=== PATIENT | female | born 1935 | race Caucasian/White ===

== ENCOUNTER 2016-03-30 19:24 | Inpatient (IN) | payer OTHER ==
[~2016-03-30] VITALS: Ht 2245.4 cm; Wt 92.8 kg
[~2016-03-30 19:24] MED LIST: ASPIRIN325 MG PO; ATORVASTATIN CA40 MG PO; CARDIZEM CD240 MG PO; COLACE100 MG PO; LEXAPRO20 MG PO; LISINOPRIL40 MG PO; PROTONIX40 MG PO; SPIRIVA RESPIMAT4 GM IH; TYLENOL EXTRA500 MG PO; VENTOLIN HFA18 GM IH; XANAX0.5 MG PO
[2016-03-30 21:04] LABS: HEMATOCRIT 34.6 % (36.0-46.0); MCH 24.9 PG (29.0-34.0); MCHC 30.9 G/DL (30.0-36.0); MCV 80.5 FL (83-99); MEAN PLAT.VOLUME 9.2 uM^3 (9.5-12.4); PLATELET COUNT 222 K/uL (156-360); RBC DIS.WIDTH-CV 14.5 % (11.8-14.6); RBC DIS.WIDTH-SD 41.9 % (39-53); WHITE BLOOD COUNT 14.2 K/uL (4.1-10.2)
[2016-03-30 21:13] LABS: CHLORIDE 103 mEq/L (99-109); POTASSIUM 3.4 mEq/L (3.7-5.4); SODIUM 139 mEq/L (136-147)
[2016-03-30 21:15] LABS: GLUCOSE 107 mg/dL (70-99)
[2016-03-30 21:17] LABS: ANION GAP 10 MEQ/L (2-14)
[2016-03-30 21:19] LABS: GFR ESTIMATE (CALCULATED) > 59 mL/min/
[2016-03-30 21:20] LABS: UREA NITROGEN (BUN) 17 mg/dL (9-23)
[2016-03-31 00:36] LABS: EOSINOPHIL (%) 0.7 % (0-5); EOSINOPHIL COUNT 0.1 K/uL (0-0.3); IMMATURE GRANULOCYTE (%) 0.3 % (0.0-0.7); LYMPHOCYTE COUNT 1.6 K/uL (1.0-2.8); MONOCYTE (%) 11.6 % (3-12); MONOCYTE COUNT 1.7 K/uL (0-0.8); NEUTROPHIL (%) 76.2 % (45-76); NEUTROPHIL COUNT 10.9 K/uL (1.8-6.4)
[2016-03-31 00:41] LABS: ADD MIUA? YES; BILIRUBIN NEGATIVE; BLOOD SMALL; COLOR YELLOW ((YELLOW)); GLUCOSE (STRIP) NEGATIVE; KETONES 5; LEUKOCYTES LARGE; NITRITE NEGATIVE; PROTEIN (STRIP) 30; SPECIFIC GRAVITY 1.019 (1.000-1.030)
[2016-03-31 00:59] LABS: BACTERIA RARE /HPF; EPITHELIAL CELLS 2+ /HPF; MUCUS 1+ /LPF; UCUL ADDED? YES; WHITE BLOOD CELLS TNTC /HPF (0-5)
[2016-03-31] MEDS ORDERED: ADVAIR 250/501 DISK IH (02:33)
[2016-03-31 03:07] LABS: TOTAL BILIRUBIN 0.5 mg/dL (0.0-1.0)
[2016-03-31 03:08] LABS: ALKALINE PHOSPHATASE 107 IU/L (3-129)
[2016-03-31 03:11] LABS: DIRECT BILIRUBIN 0.3 mg/dL (0.0-0.3)
[2016-03-31 07:25] LABS: INTERNAL CONTROL VALID? YES
[2016-03-31 12:23] VITALS: BP 159/77
[2016-03-31 13:41] LABS: ANION GAP 9 MEQ/L (2-14); CHLORIDE 104 MEQ/L (99-109); SAMPLE HEMOLYSIS CHECK 0; SAMPLE ICTERIC CHECK 0; SAMPLE LIPEMIA CHECK 0; SODIUM 139 MEQ/L (136-147)
[2016-03-31 13:42] LABS: POTASSIUM 4.1 MEQ/L (3.7-5.4)
[2016-03-31 13:48] LABS: GFR ESTIMATE (CALCULATED) > 59 mL/min/; GLUCOSE 100 mg/dL (70-99); UREA NITROGEN (BUN) 17 mg/dL (9-23)
[2016-03-31 13:55] LABS: Estimated Average Glucose 123 mg/dL (70-123); HEMOGLOBIN A1c (GLYCOHEMOGLOB) 5.9 % HGB (Below 5.7)
[2016-03-31 14:18] LABS: IRON 12 MCG/DL (35-150)
[2016-03-31 14:53] LABS: FERRITIN 68 NG/ML (10-291)
[2016-03-31 16:00] VITALS: BP 151/65
[2016-03-31 22:35] VITALS: BP 158/73
[2016-04-01 07:15] LABS: EOSINOPHIL (%) 1.8 % (0-5); EOSINOPHIL COUNT 0.2 K/uL (0-0.3); HEMATOCRIT 28.9 % (36.0-46.0); IMMATURE GRANULOCYTE (%) 0.3 % (0.0-0.7); LYMPHOCYTE COUNT 1.2 K/uL (1.0-2.8); MCH 25.1 PG (29.0-34.0); MCHC 31.1 G/DL (30.0-36.0); MCV 80.5 FL (83-99); MEAN PLAT.VOLUME 9.3 uM^3 (9.5-12.4); MONOCYTE (%) 13.1 % (3-12); MONOCYTE COUNT 1.5 K/uL (0-0.8); NEUTROPHIL (%) 73.8 % (45-76); NEUTROPHIL COUNT 8.5 K/uL (1.8-6.4); PLATELET COUNT 205 K/uL (156-360); RBC DIS.WIDTH-CV 14.6 % (11.8-14.6); RBC DIS.WIDTH-SD 42.8 % (39-53); RED BLOOD COUNT 3.59 M/uL (3.80-5.20); WHITE BLOOD COUNT 11.5 K/uL (4.1-10.2)
[2016-04-01 07:21] VITALS: BP 122/68
[2016-04-01 10:59] VITALS: BP 113/68
[2016-04-01 17:39] VITALS: BP 141/76
[2016-04-01 22:15] VITALS: BP 148/83
[2016-04-02 08:27] VITALS: BP 136/77
[2016-04-02 08:57] LABS: HEMATOCRIT 30.7 % (36.0-46.0); MCH 24.6 PG (29.0-34.0); MCHC 30.3 G/DL (30.0-36.0); MCV 81.2 FL (83-99); MEAN PLAT.VOLUME 9.1 uM^3 (9.5-12.4); PLATELET COUNT 210 K/uL (156-360); RBC DIS.WIDTH-CV 14.6 % (11.8-14.6); RBC DIS.WIDTH-SD 43.2 % (39-53); RED BLOOD COUNT 3.78 M/uL (3.80-5.20); WHITE BLOOD COUNT 10.2 K/uL (4.1-10.2)
[2016-04-02 09:20] LABS: ANION GAP 6 MEQ/L (2-14); CHLORIDE 102 MEQ/L (99-109); GFR ESTIMATE (CALCULATED) > 59 mL/min/; GLUCOSE 149 mg/dL (70-99); POTASSIUM 3.8 MEQ/L (3.7-5.4); SAMPLE HEMOLYSIS CHECK 0; SAMPLE ICTERIC CHECK 0; SAMPLE LIPEMIA CHECK 0; SODIUM 138 MEQ/L (136-147); UREA NITROGEN (BUN) 12 mg/dL (9-23)
[2016-04-02 16:00] VITALS: BP 131/66
[2016-04-02 22:38] VITALS: BP 132/78
[2016-04-03 06:22] LABS: HEMATOCRIT 31.8 % (36.0-46.0); MCH 23.6 PG (29.0-34.0); MCHC 29.2 G/DL (30.0-36.0); MCV 80.7 FL (83-99); MEAN PLAT.VOLUME 9.2 uM^3 (9.5-12.4); PLATELET COUNT 231 K/uL (156-360); RBC DIS.WIDTH-CV 14.4 % (11.8-14.6); RBC DIS.WIDTH-SD 42.6 % (39-53); RED BLOOD COUNT 3.94 M/uL (3.80-5.20)
[2016-04-03 06:44] LABS: ALKALINE PHOSPHATASE 81 IU/L (3-129); ANION GAP 8 MEQ/L (2-14); CHLORIDE 101 MEQ/L (99-109); GFR ESTIMATE (CALCULATED) > 59 mL/min/; GLUCOSE 165 mg/dL (70-99); POTASSIUM 4.2 MEQ/L (3.7-5.4); SAMPLE HEMOLYSIS CHECK 0; SAMPLE ICTERIC CHECK 0; SAMPLE LIPEMIA CHECK 0; SODIUM 138 MEQ/L (136-147); TOTAL BILIRUBIN 0.3 MG/DL (0.0-1.0); UREA NITROGEN (BUN) 17 mg/dL (9-23)
[2016-04-03 08:30] VITALS: BP 137/71
[2016-04-03 16:08] VITALS: BP 115/56
[2016-04-03 22:53] VITALS: BP 128/79
[2016-04-04 07:33] LABS: HEMATOCRIT 30.9 % (36.0-46.0); MCH 24.2 PG (29.0-34.0); MCHC 30.1 G/DL (30.0-36.0); MCV 80.5 FL (83-99); MEAN PLAT.VOLUME 9.1 uM^3 (9.5-12.4); PLATELET COUNT 261 K/uL (156-360); RBC DIS.WIDTH-CV 14.6 % (11.8-14.6); RBC DIS.WIDTH-SD 42.3 % (39-53); RED BLOOD COUNT 3.84 M/uL (3.80-5.20)
[2016-04-04 07:37] VITALS: BP 155/76
[2016-04-04 07:51] LABS: ALKALINE PHOSPHATASE 77 IU/L (3-129); ANION GAP 6 MEQ/L (2-14); CHLORIDE 101 MEQ/L (99-109); GFR ESTIMATE (CALCULATED) > 59 mL/min/; GLUCOSE 127 mg/dL (70-99); POTASSIUM 4.2 MEQ/L (3.7-5.4); SAMPLE HEMOLYSIS CHECK 0; SAMPLE ICTERIC CHECK 0; SAMPLE LIPEMIA CHECK 0; SODIUM 138 MEQ/L (136-147); UREA NITROGEN (BUN) 21 mg/dL (9-23)
[2016-04-04 07:52] LABS: TOTAL BILIRUBIN 0.2 MG/DL (0.0-1.0)
[2016-04-04 07:54] LABS: WHITE BLOOD COUNT 22.7 K/uL (4.1-10.2)
[2016-04-04 14:59] VITALS: BP 131/71
[2016-04-04 22:55] VITALS: BP 140/70
[2016-04-05 07:44] LABS: HEMATOCRIT 30.1 % (36.0-46.0); MCH 24.7 PG (29.0-34.0); MCHC 30.9 G/DL (30.0-36.0); MCV 79.8 FL (83-99); MEAN PLAT.VOLUME 9.4 uM^3 (9.5-12.4); PLATELET COUNT 250 K/uL (156-360); RBC DIS.WIDTH-CV 14.7 % (11.8-14.6); RBC DIS.WIDTH-SD 42.7 % (39-53); RED BLOOD COUNT 3.77 M/uL (3.80-5.20)
[2016-04-05 08:14] LABS: ALKALINE PHOSPHATASE 71 IU/L (3-129); ANION GAP 7 MEQ/L (2-14); CHLORIDE 101 MEQ/L (99-109); GFR ESTIMATE (CALCULATED) > 59 mL/min/; GLUCOSE 111 mg/dL (70-99); SAMPLE HEMOLYSIS CHECK 0; SAMPLE ICTERIC CHECK 0; SAMPLE LIPEMIA CHECK 0; SODIUM 138 MEQ/L (136-147); TOTAL BILIRUBIN 0.3 MG/DL (0.0-1.0); UREA NITROGEN (BUN) 20 mg/dL (9-23)
[2016-04-05 08:20] VITALS: BP 161/79
[2016-04-05 15:26] VITALS: BP 128/60
[2016-04-05 22:37] VITALS: BP 175/80
[2016-04-06 04:00] VITALS: BP 154/78
[2016-04-06 07:07] LABS: HEMATOCRIT 31.6 % (36.0-46.0); MCH 23.9 PG (29.0-34.0); MCHC 29.7 G/DL (30.0-36.0); MCV 80.4 FL (83-99); MEAN PLAT.VOLUME 8.9 uM^3 (9.5-12.4); PLATELET COUNT 243 K/uL (156-360); RBC DIS.WIDTH-CV 14.8 % (11.8-14.6); RBC DIS.WIDTH-SD 43.4 % (39-53); RED BLOOD COUNT 3.93 M/uL (3.80-5.20); WHITE BLOOD COUNT 20.3 K/uL (4.1-10.2)
[2016-04-06 07:34] LABS: ALKALINE PHOSPHATASE 65 IU/L (3-129); ANION GAP 6 MEQ/L (2-14); CHLORIDE 100 MEQ/L (99-109); GFR ESTIMATE (CALCULATED) > 59 mL/min/; GLUCOSE 113 mg/dL (70-99); POTASSIUM 4.1 MEQ/L (3.7-5.4); SAMPLE HEMOLYSIS CHECK 0; SAMPLE ICTERIC CHECK 0; SAMPLE LIPEMIA CHECK 0; SODIUM 138 MEQ/L (136-147); TOTAL BILIRUBIN 0.3 MG/DL (0.0-1.0); UREA NITROGEN (BUN) 17 mg/dL (9-23)
[2016-04-06 08:40] VITALS: BP 142/75
[2016-04-06 12:03] LABS: POC NON-PRINT COM 1 ND
[2016-04-06 12:04] LABS: POC NON-PRINT COM 1 ND
[2016-04-06 16:55] VITALS: BP 141/70
[2016-04-06 22:47] VITALS: BP 158/73
[2016-04-07] MEDS ORDERED: FERROUS SULFAT325 MG PO (06:53)
[2016-04-07] MEDS ORDERED: LEVAQUIN750 MG PO (06:54)
[2016-04-07] MEDS ORDERED: DELTASONE20 M1 PO (06:55)
[2016-04-07 07:52] LABS: HEMATOCRIT 32.3 % (36.0-46.0); MCH 24.1 PG (29.0-34.0); MCV 80.1 FL (83-99); MEAN PLAT.VOLUME 9.2 uM^3 (9.5-12.4); PLATELET COUNT 240 K/uL (156-360); RBC DIS.WIDTH-SD 43.7 % (39-53); RED BLOOD COUNT 4.03 M/uL (3.80-5.20); WHITE BLOOD COUNT 19.9 K/uL (4.1-10.2)
[2016-04-07 08:46] LABS: ALKALINE PHOSPHATASE 57 IU/L (3-129); ANION GAP 8 MEQ/L (2-14); CHLORIDE 100 MEQ/L (99-109); GFR ESTIMATE (CALCULATED) > 59 mL/min/; GLUCOSE 88 mg/dL (70-99); POTASSIUM 3.9 MEQ/L (3.7-5.4); SAMPLE HEMOLYSIS CHECK 0; SAMPLE ICTERIC CHECK 0; SAMPLE LIPEMIA CHECK 0; SODIUM 138 MEQ/L (136-147); TOTAL BILIRUBIN 0.3 MG/DL (0.0-1.0); UREA NITROGEN (BUN) 17 mg/dL (9-23)
[2016-04-07 08:47] VITALS: BP 160/79
[2016-04-07 16:00] VITALS: BP 139/70
== END 2016-04-07 18:45 | disposition home or self-care (01) | DRG 194 ==
LOC: EME 19:24 → 5EAST 03-31 04:40 → EDOF 03-31 04:40 → 5EAST 03-31 11:58
PROVIDERS: Emergency Medicine; Internal Medicine
DX: J18.9 Pneumonia, unspecified organism (principal); I48.91 Unspecified atrial fibrillation; I10 Essential (primary) hypertension; E87.6 Hypokalemia; I69.951 Hemiplegia and hemiparesis following unspecified cerebrovascular disease affecting right dominant side; J44.9 Chronic obstructive pulmonary disease, unspecified; K21.9 Gastro-esophageal reflux disease without esophagitis; D50.9 Iron deficiency anemia, unspecified; F32.9 Major depressive disorder, single episode, unspecified; F41.9 Anxiety disorder, unspecified; Z51.5 Encounter for palliative care; Z95.1 Presence of aortocoronary bypass graft; Z95.2 Presence of prosthetic heart valve; Z90.49 Acquired absence of other specified parts of digestive tract
CPT/HCPCS: 71250; 74230; 80048; 80053; 80076; 81003; 82272; 82728; 83036; 83540; 83605; 83880; 84466; 85025; 85027; 87040; 87070; 87086; 87205; 87449; 92610 GN; 92611 GN; 94640; 94640 76; 94799; 97530 GP; 99202; 99281; 99285; J1644; J1956; J2930; J7030; J7512

== ENCOUNTER 2017-01-15 11:27 | Emergency (ER) | payer OTHER ==
[~2017-01-15] VITALS: Ht 167.6 cm; Wt 93.6 kg
[~2017-01-15 11:27] MED LIST changes: +ADVAIR 250/501 DISK IH; +DELTASONE20 M1 PO; +FERROUS SULFAT325 MG PO; +LEVAQUIN750 MG PO
[2017-01-15 12:38] LABS: MCH 28.4 PG (29.0-34.0); MCHC 32.6 G/DL (30.0-36.0); MEAN PLAT.VOLUME 9.7 uM^3 (9.5-12.4); PLATELET COUNT 209 K/uL (156-360); RBC DIS.WIDTH-SD 41.2 % (39-53); RED BLOOD COUNT 4.47 M/uL (3.80-5.20); WHITE BLOOD COUNT 12.8 K/uL (4.1-10.2)
[2017-01-15 12:39] LABS: MCV 87.2 FL (83-99)
[2017-01-15 12:50] LABS: CHLORIDE 100 mEq/L (99-109); POTASSIUM 3.5 mEq/L (3.7-5.4); SODIUM 137 mEq/L (136-147)
[2017-01-15 12:52] LABS: GLUCOSE 124 mg/dL (70-99)
[2017-01-15 12:53] LABS: ANION GAP 9 MEQ/L (2-14)
[2017-01-15 12:56] LABS: ALKALINE PHOSPHATASE 97 IU/L (3-129); GFR ESTIMATE (CALCULATED) > 59 mL/min/
[2017-01-15 12:57] LABS: UREA NITROGEN (BUN) 16 mg/dL (9-23)
[2017-01-15 13:10] LABS: ADD MIUA? YES; BILIRUBIN NEGATIVE; BLOOD NEGATIVE; COLOR YELLOW ((YELLOW)); GLUCOSE (STRIP) NEGATIVE; KETONES NEGATIVE; LEUKOCYTES TRACE; NITRITE POSITIVE; PROTEIN (STRIP) NEGATIVE; SPECIFIC GRAVITY 1.017 (1.000-1.030)
[2017-01-15 13:40] LABS: BACTERIA 4+ /HPF; EPITHELIAL CELLS 1+ /HPF; MUCUS NONE SEEN /LPF; RED BLOOD CELLS RARE /HPF (0-5); UCUL ADDED? YES
[2017-01-15] MEDS ORDERED: CIPRO500 MG PO (15:35)
[2017-01-15 15:47] VITALS: BP 142/69
== END 2017-01-15 15:48 | disposition home or self-care (01) ==
LOC: EME 11:27
DX: M54.5 Low back pain (principal); R05 Cough; N39.0 Urinary tract infection, site not specified; Z86.73 Personal history of transient ischemic attack (TIA), and cerebral infarction without residual deficits; Z85.038 Personal history of other malignant neoplasm of large intestine; Z90.49 Acquired absence of other specified parts of digestive tract; J44.9 Chronic obstructive pulmonary disease, unspecified; I10 Essential (primary) hypertension; Z95.1 Presence of aortocoronary bypass graft; Z96.659 Presence of unspecified artificial knee joint; Z79.82 Long term (current) use of aspirin; Z88.0 Allergy status to penicillin; Z88.5 Allergy status to narcotic agent; Z91.09 Other allergy status, other than to drugs and biological substances
CPT/HCPCS: 72100; 80053; 81003; 85027; 87077; 87086; 87186; 94640; 99281; 99284

== ENCOUNTER 2017-01-26 14:51 | Emergency (ER) | payer OTHER ==
[~2017-01-26] VITALS: Ht 167.6 cm; Wt 91.3 kg
[~2017-01-26 14:51] MED LIST changes: +CIPRO500 MG PO
[2017-01-26 17:38] LABS: EOSINOPHIL COUNT 0.1 K/uL (0-0.3); HEMATOCRIT 42.4 % (36.0-46.0); IMMATURE GRANULOCYTE (%) 0.5 % (0.0-0.7); IMMATURE GRANULOCYTE COUNT 0.1 K/uL; INSTRUMENT ABS NEUTROPHIL CT 9.6 K/uL; LYMPHOCYTE COUNT 1.1 K/uL (1.0-2.8); MCH 27.5 PG (29.0-34.0); MCHC 32.5 G/DL (30.0-36.0); MCV 84.5 FL (83-99); MEAN PLAT.VOLUME 8.7 uM^3 (9.5-12.4); MONOCYTE (%) 8.3 % (3-12); NEUTROPHIL (%) 80.5 % (45-76); NEUTROPHIL COUNT 9.6 K/uL (1.8-6.4); RBC DIS.WIDTH-CV 12.7 % (11.8-14.6); RBC DIS.WIDTH-SD 38.6 % (39-53); RED BLOOD COUNT 5.02 M/uL (3.80-5.20); WHITE BLOOD COUNT 11.9 K/uL (4.1-10.2)
[2017-01-26 17:48] LABS: PLATELET COUNT 295 K/uL (156-360)
[2017-01-26 17:56] LABS: CHLORIDE 96 mEq/L (99-109); SODIUM 134 mEq/L (136-147)
[2017-01-26 17:58] LABS: GLUCOSE 119 mg/dL (70-99)
[2017-01-26 17:59] LABS: ANION GAP 11 MEQ/L (2-14)
[2017-01-26 18:00] LABS: TOTAL BILIRUBIN 0.5 mg/dL (0.0-1.0)
[2017-01-26 18:01] LABS: ALKALINE PHOSPHATASE 122 IU/L (3-129)
[2017-01-26 18:02] LABS: GFR ESTIMATE (CALCULATED) > 59 mL/min/
[2017-01-26 18:03] LABS: UREA NITROGEN (BUN) 13 mg/dL (9-23)
[2017-01-26 18:34] LABS: ADD MIUA? NO; BILIRUBIN NEGATIVE; BLOOD NEGATIVE; COLOR YELLOW ((YELLOW)); GLUCOSE (STRIP) NEGATIVE; KETONES 20; LEUKOCYTES NEGATIVE; NITRITE NEGATIVE; PROTEIN (STRIP) 30; SPECIFIC GRAVITY 1.018 (1.000-1.030); UCUL ADDED? NO; UROBILINOGEN 0.2 MG/DL (0.2-1.0)
[2017-01-26] MEDS ORDERED: BENTYL20 MG PO (19:43)
[2017-01-26] MEDS ORDERED: SENNA CONCENTR8.6 MG PO (19:43)
[2017-01-26 20:10] VITALS: BP 163/81
== END 2017-01-26 20:10 | disposition home or self-care (01) ==
LOC: EME 14:51
PROVIDERS: Nurse Practitioner Family
DX: R10.32 Left lower quadrant pain (principal); G89.29 Other chronic pain; M54.5 Low back pain; E87.6 Hypokalemia; Z87.440 Personal history of urinary (tract) infections; K59.00 Constipation, unspecified; J44.9 Chronic obstructive pulmonary disease, unspecified; I10 Essential (primary) hypertension; F32.9 Major depressive disorder, single episode, unspecified; Z86.73 Personal history of transient ischemic attack (TIA), and cerebral infarction without residual deficits; Z85.038 Personal history of other malignant neoplasm of large intestine; Z95.1 Presence of aortocoronary bypass graft; Z96.659 Presence of unspecified artificial knee joint; Z79.82 Long term (current) use of aspirin; Z88.5 Allergy status to narcotic agent; Z88.1 Allergy status to other antibiotic agents; Z91.040 Latex allergy status
CPT/HCPCS: 71020; 74020; 80053; 81003; 85025; 99281; 99284